=== PATIENT | female | born 1980 | race Two or more races ===

== ENCOUNTER → 2019-11-26 | Outpatient (CLI) | payer BC ==
[2015-01-27 23:42] VITALS: BP 124/73
[2019-11-26 12:45] LABS: BASO % 1 % (0-3); EOS # 0.1 x10^3/uL (0.0-0.7); EOS % 2 % (0-3); HEMATOCRIT 38.7 % (36.0-47.0); HEMOGLOBIN 13.2 g/dL (12.0-15.5); LYMPH # 2.1 x10^3/uL (1.0-4.8); LYMPH % 32 % (24-48); MEAN CORPUSCULAR HEMOGLOBIN 28 pg (25-35); MEAN CORPUSCULAR HGB CONC 34 g/dL (31-37); MEAN CORPUSCULAR VOLUME 82 fL (79-100); MONO # 0.4 x10^3/uL (0.0-1.1); MONO % 7 % (0-9); NEUT # 3.8 x10^3/uL (1.8-7.7); NEUT % 59 % (31-73); PLATELET COUNT 355 x10^3/uL (140-400); RED BLOOD COUNT 4.72 x10^6/uL (3.50-5.40); RED CELL DISTRIBUTION WIDTH 13.6 % (11.5-14.5); WHITE BLOOD COUNT 6.5 x10^3/uL (4.0-11.0)
[2019-11-26 13:08] LABS: ALBUMIN 3.5 g/dL (3.4-5.0); ALBUMIN/GLOBULIN RATIO 0.9 (1.0-1.7); CALCIUM 8.6 mg/dL (8.5-10.1); CREATININE 0.8 mg/dL (0.6-1.0); GFR 80.7; POTASSIUM 4.1 mmol/L (3.5-5.1); TOTAL BILIRUBIN 0.6 mg/dL (0.2-1.0); TOTAL PROTEIN 7.4 g/dL (6.4-8.2)
[2019-11-26 13:10] LABS: CHOLESTEROL/HDL RATIO 4.9
[2019-11-26 13:18] LABS: THYROID STIM HORMONE (TSH) 1.433 uIU/mL (0.358-3.74)
== END | disposition home or self-care (01) ==
LOC: LAB 12:02
PROVIDERS: ATTEND Obstetrics & Gynecology
DX: Z01.411 Encounter for gynecological examination (general) (routine) with abnormal findings (principal); R63.5 Abnormal weight gain; N64.52 Nipple discharge
CPT/HCPCS: 36415; 80053; 80061; 83036; 84146; 84439; 84443; 85025

== ENCOUNTER → 2019-12-18 | Outpatient (CLI) | payer BC ==
[2015-01-27 23:42] VITALS: BP 124/73
--- NOTE | 2019-12-18 11:54 | KCIC ---
Bilateral diagnostic digital mammograms: Reason for examination: Bilateral nipple discharge for 2 months with the right nipple discharge been bloody and the left nipple discharge appearing milky. Baseline exam. Interpretation was made with the benefit of CAD. The skin and nipples show no abnormalities. No abnormal axillary lymph nodes are seen. The breast parenchyma shows scattered fibroglandular density. (Breast density: Category B.) There are dilated ductal structures in the subareolar positions bilaterally. There is also a small nodular density at approximately the 10:00 position of the right breast 15 cm from nipple. Further evaluation with ultrasound will follow. There are no suspicious calcifications. Impression: Small nodule at the 10:00 position of the right breast 15 cm from the nipple. Dilated ducts in the subareolar positions bilaterally. Ultrasound to follow. Bilateral breast ultrasound: Ultrasound examination of the breasts and axilla was performed bilaterally with attention to the areas of mammographic concern. In the right breast, there is ductal ectasia and within the duct at the 8:30 and 10:00 positions, there intraductal nodules consistent with a papilloma. The largest intraductal lesion at the 10:00 position measures 1.6 cm in length and the largest intraductal lesion at the 8:30 position measures approximately 1.6 cm in greatest dimension. Further evaluation with ultrasound-guided biopsy of at least one of these intraductal lesions is recommended. There is also a small 7.5 mm hypoechoic circumscribed lesion at the 10:00 position 15 cm from the nipple. Further evaluation with ultrasound-guided biopsy is recommended. The left breast shows a 2 cm intraductal lesion at the 1:00 position. There is also a 2.5 cm complex appearing lesion in the duct at the retroareolar 3:00 position. No other cystic or solid lesions are seen and no abnormal appearing lymph nodes are seen in the left axilla. IMPRESSION: Intraductal lesions at the 8:30 and 10:00 subareolar positions of the right breast. 7.5 mm nodule at the 10:00 position 15 cm from the nipple. 2 cm intraductal lesion at the 1:00 position subareolar of the left breast. 2.5 cm complex appearing intraductal lesion in the retroareolar 3:00 position of the left breast. Recommend further evaluation with bilateral breast biopsies. BI-RADS Category 4: Suspicious. These findings have been discussed with the patient and the patient's physician, Dr. Lockett, was notified about these findings on 12/18/2019 at 11:50 AM. "Our facility is accredited by the [employer] Mammography Program." This patient's information has been entered into a reminder system for the patient to be notified with the results of her examination and a target date for the next mammogram. Electronically signed by: Verna Ordoñez MD (12/18/2019 11:51 AM) [id number]
--- NOTE | 2019-12-18 13:56 | KCIC ---
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 Instructions: / History: COMPARISON: None. TECHNIQUE: Grayscale and color ultrasound images uterus and adnexa. Transabdominal and transvaginal images obtained. Transvaginal images were needed to better visualize structures that were limited on transabdominal imaging. FINDINGS: Uterus: 108 x 57 x 45 mm. Endometrial Stripe: 18 mm. Right Ovary: 21 x 17 x 16 mm. Left Ovary: 24 x 26 x 15 mm. Vascular flow identified to bilateral ovaries. 8 mm hypoechoic nodular focus within the endometrium. Nabothian cysts. IMPRESSION: * Hypoechoic lesion within the endometrium. Some possible causes would include a polyp within the endometrium, a fibroid extending into the endometrium with higher grade neoplastic process not excluded. If further imaging evaluation is desired MRI could be obtained to further characterize Electronically signed by: Lukas Julian MD (12/18/2019 1:53 PM) [id number]
== END ==
LOC: KCIC US 08:01
PROVIDERS: ATTEND Obstetrics & Gynecology
DX: Z01.411 Encounter for gynecological examination (general) (routine) with abnormal findings (principal); N64.89 Other specified disorders of breast; N63.11 Unspecified lump in the right breast, upper outer quadrant; N88.8 Other specified noninflammatory disorders of cervix uteri; R63.5 Abnormal weight gain
CPT/HCPCS: 76641; 76830; 76856; 77066

== ENCOUNTER → 2020-03-15 | Outpatient (CLI) | payer BC ==
[2015-01-27 23:42] VITALS: BP 124/73
[~2020-03-15] MED LIST: DOCU-109 PO; GABA300C18 PO; MULT-121 PO; OMEG100021 PO; OXYC1TAB15 PO
[2020-03-15 10:50] LABS: BASO # 0.1 x10^3/uL (0.0-0.2); BASO % 1 % (0-3); EOS # 0.1 x10^3/uL (0.0-0.7); EOS % 2 % (0-3); HEMATOCRIT 38.8 % (36.0-47.0); HEMOGLOBIN 12.9 g/dL (12.0-15.5); LYMPH # 2.3 x10^3/uL (1.0-4.8); LYMPH % 31 % (24-48); MEAN CORPUSCULAR HEMOGLOBIN 27 pg (25-35); MEAN CORPUSCULAR HGB CONC 33 g/dL (31-37); MEAN CORPUSCULAR VOLUME 81 fL (79-100); MONO # 0.6 x10^3/uL (0.0-1.1); MONO % 8 % (0-9); NEUT # 4.3 x10^3/uL (1.8-7.7); NEUT % 57 % (31-73); PLATELET COUNT 356 x10^3/uL (140-400); RED BLOOD COUNT 4.79 x10^6/uL (3.50-5.40); RED CELL DISTRIBUTION WIDTH 13.7 % (11.5-14.5); WHITE BLOOD COUNT 7.5 x10^3/uL (4.0-11.0)
== END ==
LOC: SURGPAT 09:57
PROVIDERS: ATTEND Obstetrics & Gynecology
DX: Z01.812 Encounter for preprocedural laboratory examination (principal); Z20.828 Contact with and (suspected) exposure to other viral communicable diseases
CPT/HCPCS: 36415; 85025; U0003